=== PATIENT | female | born 1940 | race Caucasian/White ===

== ENCOUNTER 2019-04-06 12:43 | Observation (INO) ==
[2019-04-06 13:58] LABS: BASO# 0.02 X1000 (0.0-0.2); BASO% 0.3 % (0.0-0.8); EOS# 0.17 X1000 (0.0-0.7); EOS% 2.3 % (0.0-10.0); HEMATOCRIT 39.8 % (37.0-47.0); HEMOGLOBIN 13.1 g/dL (12.0-16.0); IMM GRAN# 0.01 X1000 (0.0-0.04); IMM GRAN% 0.1 % (0.0-0.5); LYMPH# 1.36 X1000 (1.2-3.4); MCH 30.3 PG (27-31); MCHC 32.9 g/dL (33-37); MCV 92.1 FL (81-99); MONO# 0.46 X1000 (0.11-0.59); MONO% 6.1 % (1.7-9.3); MPV 10.5 FL (7.4-10.4); NEUT# 5.53 X1000 (1.4-6.5); NEUT% 73.2 % (42.2-75.2); PLT 196 X1000 (130-400); RBC 4.32 XMIL (4.2-5.4); RDW 12.4 % (11.5-14.5); WBC 7.55 X1000 (4.8-10.8)
--- NOTE | 2019-04-06 13:58 | PROVIDER DOCUMENTATION ---
HPI-Syncope/Dizziness - General Chief Complaint: Near Syncope Stated Complaint: NEAR SYNCOPE Time Seen by Provider: 04/06/19 12:49 Allergies/Adverse Reactions: Patient Allergies Allergy/AdvReac Type Severity Reaction Status Date / Time Sulfa (Sulfonamide Allergy Unknown Verified 06/22/18 14:14 Antibiotics) Home Medications: Home Medication List Medication Instructions Recorded Confirmed Last Taken Type ATORVAstatin [Lipitor] 80 mg PO DAILY 04/06/19 04/07/19 Unknown History Apixaban [Eliquis] 5 mg PO BID 04/06/19 04/06/19 Unknown History Hydroxyzine [Atarax] 25 mg PO BID 04/06/19 04/06/19 Unknown History Lacosamide [Vimpat] 150 mg PO BID 04/06/19 04/06/19 Unknown History Lisinopril/Hydrochlorothiazide 1 tab PO DAILY 04/06/19 04/06/19 Unknown History [Lisinopril-Hctz 10-12.5 mg Tab] Omeprazole [Prilosec] 40 mg PO DAILY 04/06/19 04/06/19 Unknown History Potassium Chloride 10 meq PO DAILY 04/06/19 04/06/19 Unknown History - History of Present Illness-Syncope/Dizzy Nature of Presenting Problem: patient fainted but did not pass out, did not collapsed on the ground, felt better upon arrival to ER, patient denied chest pain, stated she had headache on the the face due to trigeminal neuralgia but was OK now, did not want to go to [facility], patient had pacemaker in place, Dr Bajwa was her pants closer Prior Episodes: reports: single episode today Onset/Duration: reports: abrupt Timing: reports: improving Position/Activity at time of episode: reports: standing Symptoms prior to episode: reports: lightheaded Context: reports: felt faint Loss of Consciousness: no loss of consciousness Location of injury. (If syncope resulted in an injury.): reports: none Recently Seen Here or By Another Healthcare Provider: No - Dizziness Severity in ED: reports: mild Dizziness Related Current/Associated Symptoms: denies: nausea/vomiting, weakness, headache Review of Systems - Adult - REVIEW OF SYSTEMS - ADULT Constitutional: denies: fever, fatique Eyes: reports: no symptoms reported Ears, Nose, Mouth & Throat: reports: no symptoms reported Cardiovascular: reports: see HPI Respiratory: reports: see HPI Gastrointestinal: reports: no symptoms reported Genitourinary: reports: no symptoms reported Musculoskeletal: reports: no symptoms reported Integumentary: reports: no symptoms reported Neurological: reports: other (fainting) Endocrine: reports: no symptoms reported Hematologic/Lymphatic: reports: no symptoms reported Allergic/Immunologic: reports: no symptoms reported Past History - Adult - PAST MEDICAL HISTORY-ADULT Review of Records: reports: Nursing Assessment Review Major Childhood Illnesses: reports: denies history Cardiovascular: reports: HTN, hyperlipidemia Respiratory: reports: denies history Gastrointestinal: reports: denies history Obstetrical/Gynecological: reports: denies history Genitourinary: reports: chronic UTI's Musculoskeletal: reports: denies history Neurological: reports: CVA, TIA Psychiatric: reports: denies history Endocrine/Immune: reports: denies history Other Conditions: reports: denies history - PRIOR SURGERIES/PROCEDURES Surgical/Procedure History: reports: none - IMMUNIZATION STATUS Childhood Immunizations: See Nurse Assessment Flu Vaccine: See Nurse Assessment - FAMILY HISTORY Family History: reviewed, not pertinent Physical Exam-General - PHYSICAL EXAM-ADULT Initial Vital Signs Reviewed: Yes - CONSTITUTIONAL General Appearance: alert, no apparent distress - EYES Eyes: PERRL/EOMI, pink conjunctivae - HEAD, EARS, NOSE, MOUTH & THROAT HENMT: normocephalic/atraumatic, moist mucous membranes - NECK Neck: non-tender - RESPIRATORY Respiratory: chest non-tender, lungs clear - CARDIOVASCULAR Cardiovascular: regular rate, rhythm, no edema, no gallop - GASTROINTESTINAL (ABDOMEN) Abdominal Exam: non tender, soft - LYMPHATIC Lymphatic: no adenopathy - MUSCULOSKELETAL Back Exam: normal inspection, no CVA tenderness, no vertebral tenderness Progress - PLAN OF CARE/RESULTS Progress/Plan/Lab Results: Laboratory Results - last 24 hr 04/06/19 04/06/19 04/06/19 13:35 13:35 13:35 WBC 7.55 RBC 4.32 Hgb 13.1 Hct 39.8 MCV 92.1 MCH 30.3 MCHC 32.9 L RDW Std Deviation 12.4 Plt Count 196 MPV 10.5 H Immature Gran % (Auto) 0.1 Neut % (Auto) 73.2 Lymph % (Auto) 18.0 L Noble % (Auto) 6.1 Eos % (Auto) 2.3 Baso % (Auto) 0.3 Immature Gran # (Auto) 0.01 Neut # (Auto) 5.53 Lymph # (Auto) 1.36 Noble # (Auto) 0.46 Eos # (Auto) 0.17 Baso # (Auto) 0.02 Sodium Potassium Chloride Carbon Dioxide Anion Gap BUN Creatinine Estimated GFR/1.73 m2 BUN/Creatinine Ratio Glucose Calculated Osmolality Calcium Total Bilirubin AST ALT Alkaline Phosphatase Creatine Kinase 100 Troponin T < 0.010 Total Protein Albumin Globulin Albumin/Globulin Ratio Amylase 60 Lipase Urine Source Urine Color Urine Clarity Urine pH Ur Specific [place] Urine Protein Urine Ketones Urine Blood Urine Nitrite Urine Bilirubin Urine Urobilinogen Urine Microscopic RBC Urine WBC Urine Microscopic WBC Ur Epithelial Cells Urine Crystals Urine Bacteria Urine Casts Urine Yeast Urine Glucose 04/06/19 04/06/19 13:35 14:30 WBC RBC Hgb Hct MCV MCH MCHC RDW Std Deviation Plt Count MPV Immature Gran % (Auto) Neut % (Auto) Lymph % (Auto) Noble % (Auto) Eos % (Auto) Baso % (Auto) Immature Gran # (Auto) Neut # (Auto) Lymph # (Auto) Noble # (Auto) Eos # (Auto) Baso # (Auto) Sodium 136 Potassium 6.2 H* Chloride 100 Carbon Dioxide 23 L Anion Gap 13 BUN 20 Creatinine 1.0 H Estimated GFR/1.73 m2 53 BUN/Creatinine Ratio 20 Glucose 82 Calculated Osmolality 274 Calcium 9.8 Total Bilirubin 0.50 AST 38 H ALT 22 Alkaline Phosphatase 53 Creatine Kinase Troponin T Total Protein 7.8 Albumin 4.5 Globulin 3.0 Albumin/Globulin Ratio 1.0 Amylase Lipase 24 Urine Source CLEAN CATCH Urine Color YELLOW Urine Clarity SL. CLOUDY A Urine pH 6.5 Ur Specific [place] 1.010 Urine Protein NEGATIVE Urine Ketones TRACE Urine Blood NEGATIVE Urine Nitrite NEGATIVE Urine Bilirubin NEGATIVE Urine Urobilinogen NORMAL Urine Microscopic RBC <10 Urine WBC 1+ A Urine Microscopic WBC 10-20 A Ur Epithelial Cells >10 A Urine Crystals NONE SEEN Urine Bacteria 2+ Urine Casts NONE SEEN Urine Yeast NONE SEEN Urine Glucose NEGATIVE Orders Category Date Time Status Admit - [facility] Routine AdmDCTranf 04/06/19 16:00 Active Saline Loc DIRECTED Care 04/06/19 12:59 Completed Vital Signs Order Q 8-HR .ASSESS Care 04/06/19 16:00 Active Z-Document. for Tele Applied ORDERED Care 04/06/19 16:00 Completed NPO Diet 04/06/19 12:59 Completed AMYLASE [CHEM] Stat Lab 04/06/19 13:35 Completed CBC WITH ELECTRONIC DIFF [HEME] Stat Lab 04/06/19 13:35 Completed CK PROFILE [SP CHEM] Stat Lab 04/06/19 13:35 Completed COMPREHENSIVE METABOLIC PANEL [CHEM] Stat Lab 04/06/19 13:35 Completed LIPASE [CHEM] Stat Lab 04/06/19 13:35 Completed POTASSIUM [CHEM] Stat Lab 04/06/19 16:20 Completed TROPONIN T Stat Lab 04/06/19 13:[address] W/POSS RFLX CULT [URINALYSIS] Stat Lab 04/06/19 14:30 Completed URINE CULTURE [RM] Routine Lab 04/06/19 14:30 Received 0.9% Sodium Chloride Inj [Ns] 1,000 ml Med 04/06/19 16:00 Discontinued IV 100 mls/hr ATORVAstatin [Lipitor] Med 04/06/19 21:00 Active 40 mg PO BID Apixaban [Eliquis] Med 04/06/19 21:00 Active 5 mg PO BID Dextrose 50% Syringe [D50w Syringe] Med 04/06/19 15:17 Discontinued 50 ml IV DIRECTED PRN PRN Hydroxyzine [Atarax] Med 04/07/19 09:00 Active 25 mg PO DAILY Insulin Human Regular (Paxton [Humulin R (Paxton)] Med 04/06/19 15:18 Discontinued 10 units IV NOW ONE Lacosamide [Vimpat] Med 04/07/19 09:00 Active 150 mg PO DAILY Omeprazole [Prilosec] Med 04/06/19 21:00 Discontinued 20 mg PO BID Telemetry [OM.EQ] Routine Oth 04/06/19 16:00 Active EKG [EKG] Stat Ther 04/06/19 12:59 Draft Transfer/Admit Order [TRANSFER] Routine Transfer 04/06/19 15:20 Completed Result Diagrams: 04/07/19 05:37 04/07/19 05:37 Departure - Departure Date of Disposition Decision: 04/06/19 Time of Disposition Decision: 15:21 DIAGNOSIS: Hyperkalemia, Pre-syncope Disposition: ADMITTED INPATIENT 09 Certified Medical Emergency: Emergent Condition: Good - Critical Care Note This patient required my direct & personal management of CC.: No Attestation - Physician/ FARIHA Attestation Patient care was provided by Advanced Practice Provider:: No The physician spent face to face time with patient:: Yes Advanced Practice Provider documentation review:: Supervising physician onsite and consulted in the evaluation and care of this patient. The physician did have a face to face encounter with the patient.
[2019-04-06 14:22] LABS: AMYLASE 60 U/L (20-200); CK PROFILE 100 U/L (24-173)
[2019-04-06 14:49] LABS: ALBUMIN 4.5 g/dL (3.5-5.0); CALCIUM 9.8 mg/dL (8.8-10.2); TOTAL BILIRUBIN 0.5 mg/dL (0.20-1.00); TOTAL PROTEIN 7.8 g/dL (6.3-8.3)
--- NOTE | 2019-04-06 14:49 | EKG Report ---
Test Performed on : 04/06/2019 1:45:16 PM Test Reason : pre-syncope Blood Pressure : / mmHG Vent. Rate : 063 BPM Atrial Rate : 063 BPM P-R Int : 266 ms QRS Dur : 090 ms QT Int : 424 ms P-R-T Axes : 064 044 -46 degrees QTc Int : 433 ms Sinus rhythm. with 1st degree AV block. Voltage criteria for left ventricular hypertrophy Anteroseptal infarct (cited on or before 05-JAN-2018) T wave abnormality, consider inferolateral ischemia Abnormal ECG When compared with ECG of 17-JUN-2018 15:56, Sinus rhythm. has replaced Junctional rhythm. Unconfirmed Result
[2019-04-06 14:51] LABS: POTASSIUM 6.2 mmol/L (3.5-5.1)
[2019-04-06 15:03] LABS: BILIRUBIN URINE NEGATIVE (NEGATIVE); BLOOD URINE NEGATIVE (NEGATIVE); CLARITY SL. CLOUDY (CLEAR); COLOR YELLOW; GLUCOSE URINE NEGATIVE (NEGATIVE); KETONE URINE TRACE mg/dL (NEGATIVE); LEUKOCYTES URINE 1+ (NEGATIVE); NITRITE URINE NEGATIVE (NEGATIVE); PH URINE 6.5; PROTEIN URINE NEGATIVE (NEGATIVE); UROBILINOGEN URINE NORMAL
[2019-04-06] MEDS ORDERED: D50W SYRINGE IV PRN (15:17)
[2019-04-06] MEDS ORDERED: HUMULIN R (PARKWAY) IV ONE (15:18)
[2019-04-06 15:23] LABS: URINE SOURCE CLEAN CATCH
[2019-04-06 15:24] LABS: URINE BACTERIA 2+ /HFP; URINE CAST NONE SEEN /LPF; URINE CRYSTAL NONE SEEN /HPF; URINE EPITHELIAL CELLS >10 /HPF (<10); URINE RBC <10 /HPF (<10); URINE YEAST NONE SEEN /HPF
[2019-04-06] MEDS ORDERED: NS 1,000 ML IV ONE (16:00)
--- NOTE | 2019-04-06 18:42 | HISTORY AND PHYSICAL ---
CHIEF COMPLAINT: Falling, dizziness. HISTORY OF PRESENT ILLNESS: The patient had an episode today when she was at [employer] unloading her groceries and she fainted, but she did not pass out. She did not collapse on the ground. She started having a headache due to trigeminal neuralgia, but was okay. She did not want to go to [facility], so she came to [place] for evaluation. She denies loss of consciousness. She does take potassium and lisinopril, although mixed with a diuretic. She has had diarrhea, some palpitations, but no kalia chest pain. Her workup in the ER was really unremarkable except that she had some hyperkalemia. I guess when they checked her potassium again, though, it was normal. So that may have been a spurious finding. In any case, the patient was placed in observation for this issue. PAST MEDICAL HISTORY: She has had a cerebrovascular accident. She actually had 2 CVAs kind of [id number]. That was back in December. She has had a pacemaker placed, hypertension, dyslipidemia. PAST SURGICAL HISTORY: Denies except for the pacemaker placement. FAMILY HISTORY: Is positive for CAD in her mother, cancer in her father. SOCIAL HISTORY: No tobacco or ethanol. ALLERGIES: To sulfa. MEDICATION LIST: She is on hydroxyzine 25 daily, Eliquis 5 b.i.d., Lipitor 40 b.i.d., lisinopril/hydrochlorothiazide 10/12.5, Klor-Con 10 daily she says she takes 3 times a week, Prilosec 20 b.i.d., Vimpat 150 daily. PHYSICAL EXAM: VITAL SIGNS: Blood pressure as described 147/51, heart rate 63, respiratory 16, temperature 97.6 degrees. She is pleasant. No major complaints. EYE EXAM: Pupils equal, round, reactive to light. Extraocular movements were intact. EARS, NOSE AND THROAT EXAM: She had moist mucous membranes. NECK EXAM: Was supple. CARDIOVASCULAR EXAM: Was regular rate and rhythm. No murmurs, gallops, or rubs. PULMONARY EXAM: Bilateral breath sounds. Clear to auscultation. GI: Was soft, nontender, nondistended. Bowel sounds are positive. NEURO: Was nonfocal. MUSCULOSKELETAL EXAM: Was 4 to 5 in all 4 extremities. LABORATORY DATA: White count 7, hemoglobin and hematocrit 13 and 39, platelets 196, creatinine 1.0. White blood cell count 10 to 20. ASSESSMENT AND PLAN: This is an 79-year-old female who is here for essentially presyncope. Problem list: 1. Presyncope. We are going to place her in observation, monitor her on telemetry, check orthostatics, continue gentle hydration, echocardiogram, carotid and follow closely. I am going to have her pacemaker interrogated as well. 2. Hyperkalemia. I do not know if this is related to her DAMIAN inhibitor and supplementation. We will follow. Repeat levels have been normal. 3. History of cerebrovascular accident. She has a nonfocal exam but we will get a head CT and monitor. DISPOSITION: If testing is normal and she is stable, discharge tomorrow. cc: Ilya Tavarez MD
--- NOTE | 2019-04-06 19:55 | Diag Imaging Result Doc PS360 ---
EXAM: CT HEAD W/O CONTRAST 04/06/2019 HISTORY: encephalopathy TECHNIQUE: This exam was performed using automated exposure control, adjustment of mA or kV according to patient size, and/or use of iterative reconstruction technique. COMMENT: There is mild generalized cerebral atrophy. There is subcortical white matter lucency in the posterior left frontal lobe. There are calcifications of the internal carotid arteries bilaterally. Compared to 06/22/2018 there has been no significant change. The visualized paranasal sinuses are clear. The calvarium is intact. IMPRESSION: Chronic ischemic change and atrophy. No evidence of acute disease. Electronically signed by Bhupinder Jo 04/06/2019 7:52 PM
[2019-04-06] MEDS ORDERED: LIPITOR PO SCH (21:00)
[2019-04-06] MEDS ORDERED: ELIQUIS PO SCH (21:00)
[2019-04-06] MEDS ORDERED: PRILOSEC PO SCH (21:00)
[2019-04-07 06:02] LABS: BASO# 0.02 X1000 (0.0-0.2); BASO% 0.3 % (0.0-0.8); EOS# 0.15 X1000 (0.0-0.7); EOS% 2.6 % (0.0-10.0); HEMATOCRIT 38.8 % (37.0-47.0); HEMOGLOBIN 12.6 g/dL (12.0-16.0); IMM GRAN# 0.01 X1000 (0.0-0.04); IMM GRAN% 0.2 % (0.0-0.5); LYMPH# 1.65 X1000 (1.2-3.4); LYMPH% 28.4 % (20.5-51.1); MCH 29.9 PG (27-31); MCHC 32.5 g/dL (33-37); MCV 91.9 FL (81-99); MONO% 6.9 % (1.7-9.3); MPV 10.2 FL (7.4-10.4); NEUT# 3.58 X1000 (1.4-6.5); NEUT% 61.6 % (42.2-75.2); PLT 189 X1000 (130-400); RBC 4.22 XMIL (4.2-5.4); RDW 12.5 % (11.5-14.5); WBC 5.81 X1000 (4.8-10.8)
[2019-04-07 06:25] LABS: AGAP 9; BUN 17 mg/dL (8-22); CALCIUM 9.5 mg/dL (8.8-10.2); CHLORIDE 106 mmol/L (98-107); COSMO 279; CREATININE 0.8 mg/dL (0.5-0.9); ESTIMATED GFR > 60; GLUCOSE 90 mg/dL (70-104); POTASSIUM 4.6 mmol/L (3.5-5.1); SODIUM 139 mmol/L (136-145); TCO2 25 mmol/L (25-35)
[2019-04-07] MEDS ORDERED: PRILOSEC PO SCH (07:00)
[2019-04-07] MEDS ORDERED: LOKELMA POWDER PACKET PO SCH (09:00)
[2019-04-07] MEDS ORDERED: VIMPAT PO SCH (09:00)
[2019-04-07] MEDS: PRINIVIL PO SCH (09:34)
[2019-04-07] MEDS: ATARAX PO SCH (09:34)
[2019-04-07] MEDS: VIMPAT PO SCH ×2 (09:34→21:16)
[2019-04-07] MEDS: ELIQUIS PO SCH ×2 (09:34→21:17)
[2019-04-07] MEDS: PRILOSEC PO SCH (09:38)
--- NOTE | 2019-04-07 10:40 | ED EKG INTERP ---
This chart was entered by Dianne Barton Scribe, acting as scribe for Zeina Mcmahan MD. EKG Interpretation - EKG Time of EKG reading by physician:: 13:45 EKG Read and Signed by:: Zeina Mcmahan EKG Interpretation (*Must complete 3 of following elements*): Abnormal ( ateroseptal infarct-age undetermined t wave abnormality-consider inferolateral ischemia) Rate: 63 Rhythm: sinus with 1st degree AV block QRS: LVH Attestation - Physician/ FARIHA Attestation Patient care was provided by Advanced Practice Provider:: No The physician spent face to face time with patient:: Yes Advanced Practice Provider documentation review:: Supervising physician onsite and consulted in the evaluation and care of this patient. The physician did have a face to face encounter with the patient. This chart was documented by the indicated scribe, (Dianne Barton, Sheng) and accurately reflects the services I performed and decisions made by me, Zeina Mcmahan MD, as attested by the provider's signature.
--- NOTE | 2019-04-07 15:35 | Vascular Study Report ---
EXAM: Carotid Ultrasound HISTORY: tia TECHNIQUE: Carotid Doppler ultrasound COMPARISON: None. FINDINGS: Right: Normal flow in the common carotid artery. Mild intimal thickening. No occlusion or stenosis. Minimal plaque in the bulb. Peak systolic velocity in the internal carotid arteries 106 cm/s. Left: Normal flow in the common carotid artery. No occlusion or stenosis. Peak systolic velocity in the internal carotid artery 67 cm/s. There is a moderate amount of plaque in the bulb. ICA/CCA ratio is 1.0. IMPRESSION: Stenosis in the proximal left internal carotid artery of less than 40%. Electronically signed by Moy Judge 04/07/2019 3:33 PM
--- NOTE | 2019-04-07 17:16 | PROGRESS NOTE ---
DATE: 04/07/2019 SUBJECTIVE: Patient has no real new complaints. States she is still somewhat dizzy and has not really been able to get out of bed. Denies any chest pains or palpitations. OBJECTIVE: Vital Signs: Reviewed. Temp 97.3 degrees, pulse 60, respiratory rate 18, BP 157/66. General: Patient is awake, alert, pleasant. She is in no respiratory distress. HEENT: Normocephalic. Neck: Supple. Cardiovascular: Regular rate. Chest: Clear. Abdomen: Soft. Extremities: Moves all extremities. ASSESSMENT: 1. Hyperkalemia, resolved, uncertain etiology. We are going to restart her DAMIAN inhibitor and recheck potassium. 2. Hypertension. We are going to restart her DAMIAN inhibitor, but hold off hydrochlorothiazide. 3. Presyncope. Likely more due to volume depletion. Appears to be improved. 4. Trigeminal neuralgia. We will restart her medication. cc: Edgard Nagel MD
--- NOTE | 2019-04-07 19:14 | ECHO REPORT ---
ORDER DATE: 04/07/2019 MEASUREMENTS: Septal thickness 1.2, left ventricular internal diameter in diastole 3.4, posterior wall thickness 1.2, left ventricular internal diameter in diastole 2.1. Left ventricular internal diameter in systole 2.1, aortic root 3.6. Left atrium 3.8. SUMMARY: 1. Adequate quality study. 2. The aortic valve is trileaflet and opens normally on 2-dimensional images. Peak gradient across the aortic valve is less than 5 mmHg. Mitral, tricuspid and pulmonic valves are without evidence of structural abnormality, with very mild mitral regurgitation, very mild tricuspid regurgitation, and mild to moderate pulmonic insufficiency. The estimated systolic PA pressure by Doppler is 35 mmHg. The aortic root is normal in size. 3. Normal left ventricular chamber size with mild concentric left ventricular hypertrophy is demonstrated. The estimated left ventricular ejection fraction appears to be at least 65%. No regional wall motion abnormalities are evident. Doppler suggests grade 1 left ventricular diastolic dysfunction. The left atrium is upper normal in size. The right atrium and right ventricle are normal in size with grossly preserved right ventricular systolic function. Pacemaker lead is evident in the right ventricle. 4. No pericardial effusion. 5. Appearance of the inferior vena cava suggests normal central venous pressure. CONCLUSIONS: 1. Very mild mitral regurgitation. 2. Very mild tricuspid regurgitation with estimated systolic PA pressure 35 mmHg. 3. Mild concentric left ventricular hypertrophy with estimated left ventricular ejection fraction at least 65%. 4. Grade 1 left ventricular diastolic dysfunction suggested. 5. Pacemaker lead in right heart. cc: MD Ilya Medina MD
[2019-04-07] MEDS ORDERED: LIPITOR PO SCH (21:00)
[2019-04-08] MEDS: PRILOSEC PO SCH (06:20)
[2019-04-08 07:04] LABS: HEMATOCRIT 39.4 % (37.0-47.0); HEMOGLOBIN 12.7 g/dL (12.0-16.0); MCH 29.8 PG (27-31); MCHC 32.2 g/dL (33-37); MCV 92.5 FL (81-99); MPV 9.8 FL (7.4-10.4); RBC 4.26 XMIL (4.2-5.4); RDW 12.6 % (11.5-14.5); WBC 5.28 X1000 (4.8-10.8)
[2019-04-08 07:20] LABS: ALBUMIN 4.1 g/dL (3.5-5.0); CALCIUM 9.7 mg/dL (8.8-10.2); CREATININE 0.9 mg/dL (0.5-0.9); POTASSIUM 4.2 mmol/L (3.5-5.1); TOTAL BILIRUBIN 0.5 mg/dL (0.20-1.00)
[2019-04-08 07:35] VITALS: BP 160/81
[2019-04-08] MEDS: ELIQUIS PO SCH (09:38)
[2019-04-08] MEDS: VIMPAT PO SCH (09:38)
[2019-04-08] MEDS: ATARAX PO SCH (09:38)
[2019-04-08] MEDS: PRINIVIL PO SCH (09:38)
--- NOTE | 2019-04-09 02:20 | DISCHARGE SUMMARY ---
ADMISSION DATE: 04/06/2019 DISCHARGE DATE: 04/08/2019 PRIMARY CARE PHYSICIAN: Dr. Damon Cheek. ADMISSION DIAGNOSES: 1. Presyncope. 2. Hyperkalemia. 3. History of cerebrovascular accident. DISCHARGE DIAGNOSES: 1. Hyperkalemia, resolved. 2. Hypertension, presyncope, likely due to volume depletion. 3. Trigeminal neuralgia, chronic. DIAGNOSTICS: 1. CT of the head revealed chronic ischemic change and atrophy. No evidence of acute disease. 2. Bilateral carotid Doppler, stenosis in the proximal left internal carotid artery of less than 40%, right normal flow in the common carotid artery. No occlusion or stenosis. 3. Echocardiogram, very mild mitral regurgitation, very mild tricuspid regurgitation with an estimated systolic PA pressure of 35 mmHg. Mild concentric left ventricular hypertrophy with estimated left ventricular ejection fraction at least 65%. Grade 1 left ventricular diastolic dysfunction. Pacemaker lead in the right heart. 4. Urine culture revealed no growth. HOSPITAL COURSE: Ms Harmon presented to the emergency room after having an episode of dizziness while she was [facility] [employer]. She stated she felt that she fainted. She did not lose consciousness. She did not fall to the ground. She stated that she had a headache secondary to her trigeminal neuralgia, but this is chronic and has been present for many years. It was the same quality of headache. She was found to be hyperkalemic with an initial potassium of 6.2, this was rechecked in approximately 3 hours and potassium was 3.5. Subsequent potassiums were 4.6 and 4.2 on the 12th and 13th respectively. While in the hospital she had no further complaints. She did continue with her chronic headache secondary to trigeminal neuralgia and she did state this waxed and waned throughout the hospitalization. She did ambulate while here with a steady gait, walking from the bed to the bathroom and the bed to the chair. DISCHARGE VITAL SIGNS: Blood pressure 160/80 with a heart rate of 65, respirations 18, temperature is 97.5 degrees oral with room air saturations 99 to 100 percent. DISCHARGE PHYSICAL EXAMINATION: Cardiovascular: Regular rate and rhythm. S1 and S2 appreciated. She has no lower extremity edema. Calves nontender. Bilateral peripheral pulses palpable x4 extremities. Pulmonary: Breath sounds are clear with no increased work of breathing noted. Chest rises and falls symmetric with respiration. Chest wall is nontender to palpation. Gastrointestinal: Abdomen is soft, nontender, nondistended with bowel sounds in all 4 quadrants. Neurologic: She is alert and oriented x3. Skin: Warm and dry. DISCHARGE MEDICATIONS: 1. Prilosec 40 mg p.o. daily. 2. Vimpat 150 mg p.o. b.i.d. 3. Hydroxyzine 25 mg p.o. b.i.d. 4. Lipitor 80 mg p.o. daily. 5. Eliquis 5 mg p.o. b.i.d. FOLLOWUP: Dr. Damon Cheek in 1 to 2 weeks. She is to call the office today to schedule an appointment for follow-up. She has been instructed to call to be seen sooner or return to the emergency room for any syncope, recurring dizziness, any chest pain, palpitations, temperature greater than 101, shortness of breath, productive cough, any nausea, vomiting, diarrhea, constipation, black or bloody vomitus or stools, any hematuria, dysuria, frequency, urgency or for any questions or concerns that she may have. She is being discharged home in stable condition with family members. TIME SPENT: This is a greater than 30 minute discharge. Dictated by ANGEL Peters for Edgard Nagel MD cc: ANGEL Peters MD Micah A. Howard, MD
--- NOTE | 2019-04-09 19:27 | DISCHARGE SUMMARY ---
ADMISSION DATE: 04/06/2019 DISCHARGE DATE: 04/08/2019 ADDENDUM: Patient seen and examined by myself. Full note dictated and discussed with nurse practitioner. Patient has a known history of trigeminal neuralgia. She was continued on her medications for this. She does have hyperkalemia of undetermined origin. It certainly could be her DAMIAN inhibitor. Regardless, her DAMIAN inhibitor and diuretic were held, and her potassium returned back to normal. She also was admitted with presyncopal type illness and was given fluids and on discharge is able to ambulate without any problems. On discharge, patient is awake, alert, oriented. She is able to ambulate without any issues. We did restart her lisinopril and held her hydrochlorothiazide as well as her potassium. She will follow up outpatient with her primary care to recheck her labs in the next few days. cc: Edgard Nagel MD
== END 2019-04-08 10:39 | disposition home or self-care (01) ==
LOC: P.ED 12:43 → P.MEDSURG 12:43 → SUATTDRO 15:41
PROVIDERS: ATTEND Family Medicine